=== PATIENT | male | born 1975 | race African-American/Black ===

== ENCOUNTER 2016-12-09 09:38 | Emergency (ER) | payer MEDICAID ==
[~2016-12-09] VITALS: Ht 172.7 cm; Wt 86.4 kg
[2016-12-09 09:58] VITALS: BP 124/79
[2016-12-09] MEDS ORDERED: IBUPROFEN 800 MG TAB PO ONE (10:15)
== END 2016-12-09 10:36 | disposition home or self-care (01) ==
LOC: ER 09:38
DX: S62.316A Displaced fracture of base of fifth metacarpal bone, right hand, initial encounter for closed fracture (principal); F17.200 Nicotine dependence, unspecified, uncomplicated; W23.0XXA Caught, crushed, jammed, or pinched between moving objects, initial encounter; Y93.89 Activity, other specified; Y99.8 Other external cause status; Y92.89 Other specified places as the place of occurrence of the external cause
CPT/HCPCS: 29125; 73130